=== PATIENT | female | born 2000 | race Two or more races ===

== ENCOUNTER 2024-04-04 20:41 | Outpatient (CLI) | payer OTHER ==
[2024-04-04 21:35] VITALS: BP 128/82
[2024-04-04 22:02] LABS: BILIRUBIN,URINE NEGATIVE (NEGATIVE); GLUCOSE, URINE (UA) NEGATIVE (NEGATIVE); KETONES,URINE (UA) 15 mg/dL (NEGATIVE); LEUKOCYTE ESTERASE, URINE SMALL (NEGATIVE); NITRITE,URINE NEGATIVE (NEGATIVE); OCCULT BLOOD,URINE NEGATIVE (NEGATIVE); PROTEIN,URINE NEGATIVE (NEGATIVE); UROBILINOGEN,URINE 0.2 (NORMAL) E.U./dL (NORMAL)
--- NOTE | 2024-04-04 22:16 | PROVIDER PROGRESS NOTE ---
- HPI Chief Complaint: Other (increasing discharge with some spotting and cramping.) Current : 24 yo G1 at 20 weeks gestational age who lives in [facility] and plans to deliver at [facility]. Visiting her family on [place]. comes in tonight with cramping, increased discharge, some spotting, decrease movement. c/b hyperemesis gravidarum. She has been hospitalized multiple times for up to 1 week with this. she takes zofran and reglan round the clock but are not helping much. she vomited 3 times today. She also was diagnosed with hyperthyroidism but her sx of this is headaches. she is not on medication for this. We have no records for her. partner for 2 years in [place] and just deployed. last sex 4 days ago. She has a friend at home to help take care of her while he is gone. 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 She is struggling to work due to her HG and mostly just goes in for a few hours and does paperwork. She is considering moving here and staying with her parents while her is deployed, but then she won't be able to work. Vital Signs Temperature 98.6 F 04/04/24 21:32 Heart Rate 80 04/04/24 21:32 Respiratory Rate 14 04/04/24 21:32 Blood Pressure 128/82 H 04/04/24 21:32 Temperature 98.6 F 04/04/24 21:32 Heart Rate 80 04/04/24 21:32 Respiratory Rate 14 04/04/24 21:32 Blood Pressure 128/82 H 04/04/24 21:32 O2 Saturation If not protocol: Oxygen Flow, liters/minute - Exam FHT normal. uterine monitor with no contractions. Appears well. Lazy eye on right. no tachycardia. uterus just above umbilicus. mildly tender on left. abdomen is soft. pelvic exam: vulva with a skin tag on left lateral to labia majora that is on a 3 mm stalk and is about 1.5 cm long and 4 mm wide. It is bothersome to her. speculum placed and vagina has a creamy discharge, no odor, no blood. cervix is closed, long and high. KAMAR is not developed. extremities not tender. - Procedures NST Procedure: n/a Findings: no signs of bleeding or labor. hyperemesis sx not well controlled. tests sent: vaginitis panel, std swab, UA - Plan Plan: call with test results tomorrow try scopalamine patch and compazine pr to help with her HG. return as needed. consider transfer of care for better support here from her family. request her provider to remove the skin tag to improve her comfort.
[2024-04-04 22:17] LABS: CLARITY,URINE HAZY (CLEAR); RBC,URINE 0-5 /HPF (0-5)
[2024-04-04 22:18] LABS: BACTERIA,URINE Few /HPF (None Seen); SQUAMOUS EPITHELIAL CELL,UR MANY Squamous (<= Few)
[2024-04-04 23:53] LABS: CHLAMYDIA TRACHOMATIS DNA NEGATIVE (NEGATIVE); NEISSERIA GONORRHOEAE DNA NEGATIVE (NEGATIVE)
[2024-04-05 03:26] LABS: BACTERIAL VAGINOSIS DNA NEGATIVE (NEGATIVE); CANDIDA GLABRATA DNA NEGATIVE (NEGATIVE); CANDIDA GROUP DNA NEGATIVE (NEGATIVE); CANDIDA KRUSEI DNA NEGATIVE (NEGATIVE); TRICHOMONAS VAGINALIS DNA NEGATIVE (NEGATIVE)
== END 2024-04-04 22:15 | disposition home or self-care (01) ==
LOC: WFO 20:41 → FBP 20:44 → WFO 22:15
PROVIDERS: ATTEND Obstetrics & Gynecology
DX: O99.891 Other specified diseases and conditions complicating pregnancy (principal); N89.8 Other specified noninflammatory disorders of vagina; O36.8120 Decreased fetal movements, second trimester, not applicable or unspecified; O21.0 Mild hyperemesis gravidarum; N90.89 Other specified noninflammatory disorders of vulva and perineum; Z3A.20 20 weeks gestation of pregnancy
CPT/HCPCS: 81001; 81514; 87491; 87591; 87661; 99214